=== PATIENT | male | born 1990 | race Hispanic/Latino ===

== ENCOUNTER 2018-10-09 11:35 | Emergency (ER) | payer OTHER | END 2018-10-09 11:56 | disposition home or self-care (01) | LOC: EDH 11:35 | DX: H00.011 Hordeolum externum right upper eyelid (principal); Z90.49 Acquired absence of other specified parts of digestive tract; Z98.890 Other specified postprocedural states | CPT/HCPCS: 99281 ==

== ENCOUNTER 2023-11-25 17:28 | Emergency (ER) | payer BC ==
[~2023-11-25] VITALS: Ht 175.3 cm; Wt 103.4 kg
[2023-11-25 18:09] LABS: BASOPHILS # (AUTO) 0.02 K/uL (0.00-0.20); BASOPHILS % (AUTO) 0.2 % (0.0-5.0); EOSINOPHILS # (AUTO) 0.09 K/uL (0.00-0.70); EOSINOPHILS % (AUTO) 1.1 % (0.0-8.0); HEMATOCRIT 43.4 % (42-54); IMMATURE GRANULOCYTE ABSOLUTE 0.03 K/uL (0-1); LYMPHOCYTES # (AUTO) 2.7 K/uL (1.0-4.8); LYMPHOCYTES % (AUTO) 31.9 % (21.0-51.0); MEAN CORPUSCULAR HEMOGLOBIN 29.3 pg (27.0-33.0); MEAN CORPUSCULAR HGB CONC 36.2 g/dL (32.0-36.0); MONOCYTES # (AUTO) 0.6 K/uL (0.1-1.0); MONOCYTES % (AUTO) 6.8 % (3.0-13.0); NEUTROPHILS # (AUTO) 5.1 K/uL (1.8-7.7); NEUTROPHILS % (AUTO) 59.6 % (40.0-77.0); PLATELET COUNT (AUTO) 267 K/uL (130-400); RED BLOOD CELL COUNT(AUTO) 5.36 MIL/uL (4.50-6.20); RED CELL DISTRIBUTION WIDTH 12.4 % (11.0-15.5); WHITE BLOOD COUNT (AUTO) 8.5 K/uL (4.8-10.8)
[2023-11-25] MEDS: 0.9%NACL 1000ML 1,000 ML IV ONE (18:09)
[2023-11-25] MEDS: KETOROLAC 30MG VIAL (30MG/ML) IVP ONE (18:09)
[2023-11-25 18:21] LABS: CREATININE 1.1 mg/dL (0.5-1.3); POTASSIUM 3.9 mmol/L (3.5-5.1)
[2023-11-25 18:25] LABS: BILIRUBIN,TOTAL 0.7 mg/dL (0.2-1.0); TOTAL PROTEIN, SERUM 7.9 g/dL (6.0-8.3)
[2023-11-25] MEDS ORDERED: IOHEXOL 350 MG/ML 100ML INFUS..BTL IV ONE (18:28)
[2023-11-25 19:09] LABS: APPEARANCE,URINE CLEAR (CLEAR); BILIRUBIN,URINE NEGATIVE (NEGATIVE); COLOR,URINE COLORLESS (YELLOW); GLUCOSE, URINE (UA) NEGATIVE (NEGATIVE); KETONES,URINE NEGATIVE (NEGATIVE); LEUKOCYTE ESTERASE ,URINE NEGATIVE Leu/uL (NEGATIVE); NITRATE,URINE NEGATIVE (NEGATIVE); OCCULT BLOOD,URINE NEGATIVE (NEGATIVE); PH,URINE 6.5 (5.0-8.0); PROTEIN,URINE NEGATIVE (NEGATIVE); UROBILINOGEN,URINE 0.2 mg/dL (0.2-1.0)
[2023-11-25 19:11] LABS: ADD UA MICROSCOPIC NO
[2023-11-25 19:40] VITALS: BP 127/88; PULSE 71; RESP 18; O2SAT 99
== END 2023-11-25 19:41 | disposition home or self-care (01) ==
LOC: EDH 17:28
DX: S39.011A Strain of muscle, fascia and tendon of abdomen, initial encounter (principal); Z90.49 Acquired absence of other specified parts of digestive tract; Z98.890 Other specified postprocedural states; X58.XXXA Exposure to other specified factors, initial encounter; Y93.89 Activity, other specified; Y92.89 Other specified places as the place of occurrence of the external cause; Y99.8 Other external cause status
CPT/HCPCS: 99284; 74177; 96374; 96361; 80053; 83690; 85025; 81003; 36415; J7030; J1885; Q9967

== ENCOUNTER 2024-07-10 12:38 | Emergency (ER) | payer BC ==
[~2024-07-10] VITALS: Ht 175.3 cm; Wt 102.1 kg
[2024-07-10] MEDS: HYDROcodone/APAP 5/325 1 TAB TABLET PO ONE (13:30)
[2024-07-10] MEDS: LIDOCAINE HCL 1% 20 ML VIAL INJ ONE (13:30)
[2024-07-10 13:49] LABS: BASOPHILS # (AUTO) 0.02 K/uL (0.00-0.20); BASOPHILS % (AUTO) 0.2 % (0.0-5.0); EOSINOPHILS # (AUTO) 0.14 K/uL (0.00-0.70); EOSINOPHILS % (AUTO) 1.7 % (0.0-8.0); IMMATURE GRANULOCYTE ABSOLUTE 0.03 K/uL (0-1); LYMPHOCYTES # (AUTO) 2.1 K/uL (1.0-4.8); MEAN CORPUSCULAR HEMOGLOBIN 28.8 pg (27.0-33.0); MEAN CORPUSCULAR HGB CONC 34.8 g/dL (32.0-36.0); MEAN CORPUSCULAR VOLUME 82.9 fL (79-99); MONOCYTES # (AUTO) 0.7 K/uL (0.1-1.0); MONOCYTES % (AUTO) 7.9 % (3.0-13.0); NEUTROPHILS # (AUTO) 5.4 K/uL (1.8-7.7); NEUTROPHILS % (AUTO) 64.8 % (40.0-77.0); PLATELET COUNT (AUTO) 293 K/uL (130-400); RED BLOOD CELL COUNT(AUTO) 5.55 MIL/uL (4.50-6.20); RED CELL DISTRIBUTION WIDTH 12.6 % (11.0-15.5); WHITE BLOOD COUNT (AUTO) 8.3 K/uL (4.8-10.8)
[2024-07-10 13:50] LABS: CREATININE 1.1 mg/dL (0.5-1.3); POTASSIUM 4.1 mmol/L (3.5-5.1)
--- NOTE | 2024-07-10 14:02 | HMCIMG ---
US SOFT TISSUE LOWER BACK HISTORY: Abscess TECHNIQUE: US SOFT TISSUE LOWER BACK. FINDINGS/IMPRESSION: Ultrasound evaluation of the lower back was performed. Hypoechoic mass is seen in the area of interest measuring 5.6 x 4.4 x 2.5 cm.
--- NOTE | 2024-07-10 16:35 | ERN ---
ED Note History of Present Illness Stated Complaint: CYST ON BACK, BACK PAIN Chief Complaint: Abscess Time Seen by MD: 13:04 Time Seen by Midlevel: 13:04 Dictation: The patient is a 33-year-old male with a history of appendectomy who presents to the emergency department with complaints of low back abscess. Patient reports he has been having problems with this for a month had a drained but two months ago it started to grow again. Reports that a week ago pain got worse and started getting erythema. Patient denies any fevers. Allergies: Coded Allergies: No Known Allergies (Unverified Allergy, Unknown, 10/09/18) Past Medical History Past Medical History: No Pertinent History Surgical History: Appendectomy, Other Surgical History Other: LEFT FEMUR REPAIR. RN Note Reviewed/Agreed w/PFSH: Yes Review of System Dictation Constitutional: Negative for fever,chills, and weight loss Eyes: Negative for injury, pain,redness, and discharge ENT: Negative for injury,pain or swelling Cardiovascular: Negative for chest pain, palpitations, and edema Respiratory: Negative for shortness of breath, cough, and wheezing, Abdomen/GI: Negative for abdominal pain, nausea, vomiting, diarrhea, and constipation Back: Negative for injury and pain : Negative for injury, bleeding and discharge MS/Extremity: Negative for injury and deformity Skin: Negative for rash, and discoloration, abscess noted to left lower back, Neuro: Negative for headache, weakness, numbness, tingling, and seizure Psych: Negative for suicide ideation, homicidal ideation, and hallucinations Initial Vital Sign VS Vital Signs Date Time Temp Pulse Resp B/P (MAP) Pulse Ox O2 Delivery O2 Flow Rate FiO2 07/10/24 13:06 98.1 79 16 127/80 97 Room Air 07/10/24 16:48 0 21 Physical Exam Dictation Vital Signs reviewed General Appearance: Alert, oriented x 3, no acute distress, well developed, nourished. Head and Face: non-traumatic. Eyes: PERRL, pink conjunctivas, eyelid no trauma, anterior chamber with arcus senilis. Ears: Pinnas intact and no signs of trauma or erythema ear canals clear and no discharge TM no erythema Nose: No discharge, no bleeding. Oropharynx: Mouth normal, tongue pink. pharynx clear,no erythema, tonsils no exudates, no abscesses noted, mucous membrane moist Neck: Supple, non-tender, no thyromegaly, no masses, no JVD, no bruits Breast:Deferred Chest:No tenderness, no crepitus, no paradoxical movement, no retractions Lungs:Clear, well-ventilated, symmetric, no rales, no wheezing, no rhonchi, no stridor, good breath sounds bilaterally Heart: Regular rate, regular rhythm, no murmur, no gallops Vascular: no peripheral edema, Abdomen: Soft, positive bowel sounds, nondistended, no guarding, nontender, no rebound, no masses no hepatomegaly, no splenomegaly, no Carpenter's sign, no hernias. Rectal: Deferred Genital: Deferred Neurological: Normal speech, motor function intact, sensory function intact Musculoskeletal: Neck nontender, full range of motion, back nontender, full range of motion, Extremities: nontender, full range of motion Skin: Color pink, dry, no turgor, no rash, no lacerations, no abrasions, no contusions. 5 cm cyst noted to left lower back, slight erythema, tender to palpation, no open wounds Lymphatic: Deferred Results (Laboratory/Radiology) Laboratory/Radiology Laboratory Tests Test 07/10/24 13:37 White Blood Count 8.3 K/uL (4.8-10.8) Red Blood Count 5.55 MIL/uL (4.50-6.20) Hemoglobin 16.0 g/dL (14.0-18.0) Hematocrit 46.0 % (42-54) Mean Corpuscular Volume 82.9 fL (79-99) Mean Corpuscular Hemoglobin 28.8 pg (27.0-33.0) Mean Corpuscular Hemoglobin Concent 34.8 g/dL (32.0-36.0) Red Cell Distribution Width 12.6 % (11.0-15.5) Platelet Count 293 K/uL (130-400) Mean Platelet Volume 11.0 fL (7.5-10.5) H Immature Granulocyte % (Auto) 0.4 % (0-1) Neutrophils (%) (Auto) 64.8 % (40.0-77.0) Lymphocytes (%) (Auto) 25.0 % (21.0-51.0) Monocytes (%) (Auto) 7.9 % (3.0-13.0) Eosinophils (%) (Auto) 1.7 % (0.0-8.0) Basophils (%) (Auto) 0.2 % (0.0-5.0) Neutrophils # (Auto) 5.4 K/uL (1.8-7.7) Lymphocytes # (Auto) 2.1 K/uL (1.0-4.8) Monocytes # (Auto) 0.7 K/uL (0.1-1.0) Eosinophils # (Auto) 0.14 K/uL (0.00-0.70) Basophils # (Auto) 0.02 K/uL (0.00-0.20) Absolute Immature Granulocyte (auto 0.03 K/uL (0-1) Nucleated Red Blood Cells 0.0 % (0.0-0.19) Sodium Level 140 mmol/L (136-145) Potassium Level 4.1 mmol/L (3.5-5.1) Chloride Level 104 mmol/L (101-111) Carbon Dioxide Level 34 mmol/L (21-32) H Blood Urea Nitrogen 13 mg/dL (7-18) Creatinine 1.1 mg/dL (0.5-1.3) Glomerular Filtration Rate Calc 90 mL/min (>90) Random Glucose 95 mg/dL (70-105) Total Calcium 9.1 mg/dL (8.5-10.1) REASON: Abscess ORDERING PHYSICIAN: BRENNEN ORTIZ PROCEDURE: SOFT LBACK - US SOFT TISSUE LOWER BACK US SOFT TISSUE LOWER BACK HISTORY: Abscess TECHNIQUE: US SOFT TISSUE LOWER BACK. FINDINGS/IMPRESSION: Ultrasound evaluation of the lower back was performed. Hypoechoic mass is seen in the area of interest measuring 5.6 x 4.4 x 2.5 cm. Labs Reviewed?: Yes ED Course ED Course Orders Procedure Category Date Status Time Cbc With Differential LAB 07/10/24 Complete 13:17 Basic Metabolic Panel LAB 07/10/24 Complete 13:17 Lidocaine Hcl 1% 20ml PHA 07/10/24 Complete Vial (Lidocaine Hc 13:30 Us Soft Tissue Lower US 07/10/24 Resulted Back 13:17 I&D Set Up Bedside CPOE 07/10/24 Transmitted (Er) 13:17 Hydrocodone/Apap PHA 07/10/24 Complete 5/325 ([place] 5/325mg) 13:30 Ceftriaxone 1g Vial PHA 3/9/25 Logged (Rocephine 1g Inj) 17:30 Aerobic Culture ALMA 07/10/24 Transmitted 17:26 Anaerobic Culture ALMA 07/10/24 Transmitted 17:26 Current Medications Medications (Trade) Dose Ordered Sig/Jose Route PRN Reason Start Time Stop Time Status Last Admin Dose Admin Acetaminophen/ Hydrocodone Bitart (NORco 5/325MG) 1 tab ONCE ONCE PO 07/10/24 13:30 07/10/24 13:31 DC 07/10/24 13:30 Ceftriaxone Sodium (ROCEphine 1G INJ) 1 gm ONCE ONCE IM 07/10/24 17:30 07/10/24 17:31 UNV Lidocaine HCl (Lidocaine HCl 1% 20ml Vial) 10 ml ONCE ONCE INJ 07/10/24 13:30 07/10/24 13:31 DC 07/10/24 13:30 Vital Signs Date Time Temp Pulse Resp B/P (MAP) Pulse Ox O2 Delivery O2 Flow Rate FiO2 07/10/24 17:28 98.1 81 20 127/60 99 Room Air* 0 21 07/10/24 16:48 98.8 84 20 128/69 99 Room Air* 0 21 07/10/24 13:06 98.1 79 16 127/80 97 Room Air Medical Decision Making MDM The patient is a 33-year-old male with a history of appendectomy who presents to the emergency department with complaints of low back abscess. Patient reports he has been having problems with this for a month had a drained but two months ago it started to grow again. Reports that a week ago pain got worse and started getting erythema. Patient denies any fevers. CBC showed no leukocytosis, no anemia, chemistry showed no electrolyte imbalance, ultrasound revealed hypopneic masses seen in the area of interest measuring 5.6 and 4.4 x 2.5 Differential diagnosis: Abscess, cellulitis, sepsis, sebaceous cyst Need for hospitalization: Patient does not meet criteria for hospitalization. There are no social concerns with this patient. Procedure Site: Left lower back Blade Size: 11 I & D Procedure: no betadine prep Progress Verbal consent for the procedure was obtained. A timeout protocol was performed prior to initiating the procedure. The area was prepared and draped in the usual, sterile manner. The site was anesthetized with 1% lidocaine without epinephrine. A linear incision along the local skin lines was made and the purulent material expressed. The abscess was explored thoroughly and sequestered pockets were opened. Bleeding was minimal. The patient tolerated the procedure well without complications. Standard post- procedure care is explained and return precautions are given. DX & DISP Disposition: Discharge Departure Impression: Primary Impression: Infected sebaceous cyst Condition: Stable Scripts Sulfamethoxazole/Trimethoprim (Bactrim Ds Tablet) 800 Mg-160 Mg Tablet 1 TAB PO BID for 7 Days, #14 TAB 0 Refills Prov: BRENNEN ORTIZ 07/10/24 Additional Instructions: Please follow up with your primary doctor. Take medications as prescribed. If symptoms worsen please return to ER. FOLLOW-UP WITH PRIMARY CARE PROVIDER IN 1 TO 2 DAYS. TAKE MEDICATIONS DIRECTED HERE IN THE EMERGENCY ROOM. OKAY TO CONTINUE HOME MEDICATIONS UNLESS OTHERWISE DISCUSSED DURING YOUR VISIT IN THE EMERGENCY ROOM TODAY. RETURN TO YOUR NEAREST EMERGENCY ROOM IF SYMPTOMS WORSEN OR IF THERE IS NO IMPROVEMENT. CALL 911 IF YOU NEED IMMEDIATE ASSISTANCE. TAKE TYLENOL OR MOTRIN [id number] NEEDED AND IF NO CONTRAINDICATIONS ARE PRESENT. INCREASE ORAL HYDRATION. A WOUND CULTURE OR URINE CULTURE WAS ORDERED HERE IN THE EMERGENCY ROOM DEPARTMENT PLEASE FOLLOW-UP WITH PRIMARY CARE PROVIDER AND ADVISE THEM TO GET REPEAT PORTS FROM OUR FACILITY. IF YOU HAD ANY KIANA WRAP/SPLINTS THAT WERE APPLIED HERE, PLEASE DO NOT REMOVE THEM UNTIL YOU SEE YOUR PRIMARY CARE OR SPECIALTY. Referrals: VANGIE MART MD (PCP) CRAIG LARA MD Time of Disposition: 17:32 I have reviewed the case, and I agree with, Diagnosis and Plan BRENNEN ORTIZ Jul 10, 2024 16:35
[2024-07-10 17:28] VITALS: BP 127/60; PULSE 81; RESP 20; TEMP 98.1; O2SAT 99
[2024-07-10] MEDS ORDERED: SULF1TAB42 PO (17:33)
[2024-07-10] MEDS: cefTRIAXone 1G VIAL IM ONE (17:34)
== END 2024-07-10 17:44 | disposition home or self-care (01) ==
LOC: EDH 12:38 → EEVIPCON 12:38 → EDH 17:44
DX: L72.3 Sebaceous cyst (principal); L08.9 Local infection of the skin and subcutaneous tissue, unspecified; Z90.49 Acquired absence of other specified parts of digestive tract
CPT/HCPCS: 99284; 10060; 76705; 80048; 85025; 87070; 87076; 36415; 96372; J0696

== ENCOUNTER 2024-09-17 20:21 | Emergency (ER) | payer BC ==
[~2024-09-17] VITALS: Ht 175.3 cm; Wt 97.5 kg
[~2024-09-17 20:21] MED LIST: SULF1TAB42 PO
--- NOTE | 2024-09-17 20:29 | NUR ---
UA CUP PROVIDED
--- NOTE | 2024-09-17 20:31 | NUR ---
UA COLLECTED AND SENT
--- NOTE | 2024-09-17 20:45 | ERN ---
ED Note History of Present Illness Stated Complaint: FACIAL NUMBNESS Chief Complaint: Other Problems Time Seen by MD: 20:25 Time Seen by Midlevel: 20:30 Dictation: Mr. Pringle is a 34-year-old gentleman with history of obesity who presented to the emergency department this evening for evaluation of facial numbness. He states that at approximately 1730 he developed a slight posterior/parietal right-sided headache as well as paresthesia to the left eyebrow/left cheek. He states he has been experiencing twitching of the left eye . He denies dysphasia, dysarthria, ataxic gait, altered mental status, vision changes or motor weakness. He denies recent illness, fever, chills, shortness of breath, cough, chest pain, palpitations, edema, abdominal pain, nausea, vomiting, diarrhea, dysuria, or dizziness. Allergies: Coded Allergies: No Known Allergies (Unverified Allergy, Unknown, 10/09/18) Home Meds Active Scripts Sulfamethoxazole/Trimethoprim (Bactrim Ds Tablet) 800 Mg-160 Mg Tablet, 1 TAB PO BID for 7 Days, #14 TAB 0 Refills Prov:BRENNEN ORTIZ CARD PLACER 07/10/24 Past Medical History Past Medical History: No Pertinent History, Other (obesity) Surgical History: Appendectomy, Other Surgical History Other: LEFT FEMUR REPAIR. PSYCH History: no pertinent psych hx Social History: Negative, Lives with family RN Note Reviewed/Agreed w/PFSH: Yes Review of System Dictation REVIEW OF SYSTEMS: CONSTITUTIONAL: Patient denies fevers, chills, sweats and weight changes. EYES: Reports twitching of the left eye. EARS, NOSE, AND THROAT: No difficulties with hearing. No symptoms of rhinitis or sore throat. CARDIOVASCULAR: Patient denies chest pains, palpitations, orthopnea and paroxysmal nocturnal dyspnea. RESPIRATORY: No dyspnea on exertion, no wheezing or cough. GI: No nausea, vomiting, diarrhea, constipation, abdominal pain, hematochezia or melena. : No urinary hesitancy or dribbling. No nocturia or urinary frequency. No abnormal urethral discharge. MUSCULOSKELETAL: No myalgias or arthralgias. NEUROLOGIC: No chronic headaches/migraines, no seizures. Patient denies focal weakness, problems with speech or swallowing, unsteady gait, dizziness, . Reports slight headache right parietal/posterior. Repots numbness at left eyebrow and left cheek. PSYCHIATRIC: Patient denies problems with mood disturbance. No problems with anxiety. ENDOCRINE: No excessive urination or excessive thirst. DERMATOLOGIC: Patient denies any rashes or skin changes. Initial Vital Sign VS Vital Signs Date Time Temp Pulse Resp B/P (MAP) Pulse Ox O2 Delivery O2 Flow Rate FiO2 09/17/24 20:22 98.4 74 16 129/86 98 Room Air 09/17/24 20:47 0 21 Physical Exam Dictation Vital signs: Reviewed. Afebrile Constitutional: No acute distress. Non-toxic appearing. Significant other at bedside Head/Face: Normocephalic, atraumatic. Eyes: Periorbital areas with no swelling, redness, or edema. Lids and lashes are normal. Conjunctival injection is absent. Sclera anicteric. Pupils equal, round, reactive to light. ENT: Pinnas intact and no signs of trauma or erythema. Ear canals clear and no discharge. TMs no erythema. No nasal discharge or bleeding noted. Oropharynx with no exudate, redness, swelling, masses, exudates, or evidence of obstruction. Uvula midline. Mucous membranes moist. Neck: Trachea midline, no masses palpated, and no cervical lymphadenopathy. No swelling. Supple, full range of motion. Chest/Axilla: No tenderness, no crepitus, no paradoxical movement, no retractions. Cardiovascular: Regular rate, regular rhythm, no murmur, no gallops. Symmetric pulses. No peripheral edema. BP 129/86. Respiratory: Respirations even and unlabored. Lung sounds clear; no wheezes, rales or rhonchi. Room air SpO2 98%. Gastrointestinal: Inspection is normal. No distention is appreciated. Bowel sounds are normal. No mass or organomegaly . There is no tenderness. No rebound. No rigidity. No voluntary or involuntary guarding. No Carpenter's sign. Neurological: Alert and oriented x3. No aphasia or dysarthria. No dysphasia. Gait normal; no ataxia vision grossly intact. No diplopia or visual field deficits reported. Pupils equal, round, reactive. EOMs intact. No nystagmus there was subjective decrease in sensation noted over left V1 distribution (forehead and periorbital area, V2 and V3 intact bilaterally. [place] and temporalis strength symmetrical. Symmetrical brow elevation, eye closure, smile, and puff cheeks. No facial droop. Speech is clear. No hoarseness. Shoulder shrug and head turn symmetrical. Tongue is midline; full range of motion. Motor strength five stress five in all extremities. No pronator drift. Normal light touch and pinprick sensation throughout accept for mild subjective decrease in left V1 distribution. Reflexes 2+ and symmetrical. Plantar reflex downgoing bilaterally. Tmihpa-[id number], vuwu-[id number] intact. No dysmetria. Gait is normal. NIHSS=1 (sensory) Musculoskeletal/Extremities: All extremities have full range of motion, no pain or tenderness on palpation. Symmetric pulses. Integumentary: Intact. Skin is normal color, warm and dry. Cap refill less than 2 seconds. Results (Laboratory/Radiology) Laboratory/Radiology Laboratory Tests Test 09/17/24 21:02 White Blood Count 9.1 K/uL (4.8-10.8) Red Blood Count 5.58 MIL/uL (4.50-6.20) Hemoglobin 16.0 g/dL (14.0-18.0) Hematocrit 46.0 % (42-54) Mean Corpuscular Volume 82.4 fL (79-99) Mean Corpuscular Hemoglobin 28.7 pg (27.0-33.0) Mean Corpuscular Hemoglobin Concent 34.8 g/dL (32.0-36.0) Red Cell Distribution Width 12.3 % (11.0-15.5) Platelet Count 247 K/uL (130-400) Mean Platelet Volume 10.6 fL (7.5-10.5) H Immature Granulocyte % (Auto) 0.3 % (0-1) Neutrophils (%) (Auto) 58.2 % (40.0-77.0) Lymphocytes (%) (Auto) 32.9 % (21.0-51.0) Monocytes (%) (Auto) 6.4 % (3.0-13.0) Eosinophils (%) (Auto) 1.9 % (0.0-8.0) Basophils (%) (Auto) 0.3 % (0.0-5.0) Neutrophils # (Auto) 5.3 K/uL (1.8-7.7) Lymphocytes # (Auto) 3.0 K/uL (1.0-4.8) Monocytes # (Auto) 0.6 K/uL (0.1-1.0) Eosinophils # (Auto) 0.17 K/uL (0.00-0.70) Basophils # (Auto) 0.03 K/uL (0.00-0.20) Absolute Immature Granulocyte (auto 0.03 K/uL (0-1) Nucleated Red Blood Cells 0.0 % (0.0-0.19) Sodium Level 142 mmol/L (136-145) Potassium Level 3.7 mmol/L (3.5-5.1) Chloride Level 106 mmol/L (101-111) Carbon Dioxide Level 25 mmol/L (21-32) Blood Urea Nitrogen 12 mg/dL (7-18) Creatinine 1.1 mg/dL (0.5-1.3) Glomerular Filtration Rate Calc 89 mL/min (>90) Random Glucose 131 mg/dL (70-105) H Total Calcium 8.5 mg/dL (8.5-10.1) Magnesium Level 2.20 mg/dL (1.80-2.40) Labs Reviewed?: Yes CT Scan Comment: PATIENT: FLAVIO PRINGLE MR#: [id number] : 1990 SEX: M AGE: 34 LOCATION: [facility] ORDER 43 STATUS: REG REPORT#: [id number] SERVICE 42 REASON: eye pain, facial numbness ORDERING PHYSICIAN: DIMAS CRUZ NP PROCEDURE: HEAD WO - CT HEAD/BRAIN W/O CONTRAST CT HEAD/BRAIN W/O CONTRAST HISTORY: Eye pain COMPARISON: 09/17/2024 TECHNIQUE: Multiple sequential axial images of the head were obtained from the base of the skull through vertex. Patient was not given contrast through intravenous route. FINDINGS: The ventricles and extraventricular CSF spaces are nondilated for patient's age. There is no midline shift, mass effect or herniation. No acute intracranial bleed is seen. Left maxillary sinus polyp is seen. IMPRESSION: 1. No acute intracranial bleed is seen. CT was performed with one or more following dose reduction techniques: automated exposure control, adjustment of the mA and kv according to patient's size, or use of a iterative reconstruction technique. DICTATED BY: DESTINI GARCÍA MD DATE: 09/17/242140 ELECTRONICALLY SIGNED BY: DESTINI GARCÍA MD DATE: 09/17/242144 ED Course ED Course Orders Procedure Category Date Status Time Cbc With Differential LAB 09/17/24 Complete 20:43 Basic Metabolic Panel LAB 09/17/24 Complete 20:43 Magnesium LAB 09/17/24 Complete 20:43 Ct Head/Brain W/O CT 09/17/24 Resulted Contrast 20:43 Vital Signs Date Time Temp Pulse Resp B/P (MAP) Pulse Ox O2 Delivery O2 Flow Rate FiO2 09/17/24 20:47 97.9 76 16 130/84 97 Room Air* 0 21 09/17/24 20:22 98.4 74 16 129/86 98 Room Air Uneventful ED course. Vital signs stable; normotensive and afebrile with room air SpO2 97-98%. NIHSS=1 for decreased sensation (minimal) to left cheek/eyebrow region. His headache he rated 1-2/10 and declined need for analgesic. Stat noncontrast CT scan of the brain unremarkable; negative for intracranial hemorrhage. Laboratory findings as noted below. No elevation of WBCs. No electrolyte derangement. Findings were discussed with patient and his significant other and all questions were answered. Medical Decision Making MDM MDM: Differential diagnosis: Benign eyelid myokymia, electrolyte derangement, trigeminal neuropathy (V1 branch). Early herpes zoster ophthalmicus (HZO), migraine headaches, structural lesion Rationale: Tests considered and ordered secondary to shared decision making include: Lab, CT Previous outside records reviewed: Old ER visits. Risk of complication and/or morbidity or mortality of patient management: None Medications-Per medication reconciliation Need for hospitalization: Patient does not meet criteria for hospitalization. Need for emergency major/minor surgery: No There are no social concerns with this patient. Prescription drug management Prescriptions will include symptomatic care Patient's prior external medical records from other ER visits were reviewed by me as indicated. Prior testing and results from previous visits were reviewed. Prior tests were taken into account with medical decision making and resource utilization, independent historian/historians were used to obtain complete medical history. I independently interpreted the test that were performed, results were reviewed by me and considered findings on radiology if ordered. Medical management and examination interpretation discussions were had by me with other qualified healthcare professionals as indicated for the patient's care. DX & DISP Disposition: Discharge Departure Impression: Primary Impression: Eyelid myokymia Additional Impression: Lt facial numbness Condition: Stable Additional Instructions: Eyelind myokyia is often caused by fatigue, stress, caffeine, or eyes drain in his usually homeless. Mild symptoms may improve gradually over days to weeks. Your laboratory findings and CT scan were normal which is reassuring. Rest and reduce stress. Limit caffeine and screen time. May use warm compress over the affected area of comfortable. Stay hydrated and get adequate weep. Use artificial tears if eyes feel dry or irritated. He should follow up with your primary care provider next week. If symptoms persist beyond 1-2 weeks, worsened, or interfere with daily activities may benefit from referral to neurologist. If a rash, worsening numbness, or new symptoms develop seek medical attention promptly with. Return to the emergency department as needed. You should seek immediate care if you develop facial drooping or weakness, vision changes or double vision, difficulty speaking, swallowing, or walking, intents or worsening headache, or a new rash new the eye or forehead which may indicate shingles. Referrals: VANGIE MART MD (PCP) Time of Disposition: 21:36 DIMAS CRUZ NP September 17, 2024 20:45
[2024-09-17 21:10] LABS: BASOPHILS # (AUTO) 0.03 K/uL (0.00-0.20); BASOPHILS % (AUTO) 0.3 % (0.0-5.0); EOSINOPHILS # (AUTO) 0.17 K/uL (0.00-0.70); EOSINOPHILS % (AUTO) 1.9 % (0.0-8.0); IMMATURE GRANULOCYTE ABSOLUTE 0.03 K/uL (0-1); LYMPHOCYTES % (AUTO) 32.9 % (21.0-51.0); MEAN CORPUSCULAR HEMOGLOBIN 28.7 pg (27.0-33.0); MEAN CORPUSCULAR HGB CONC 34.8 g/dL (32.0-36.0); MEAN CORPUSCULAR VOLUME 82.4 fL (79-99); MONOCYTES # (AUTO) 0.6 K/uL (0.1-1.0); MONOCYTES % (AUTO) 6.4 % (3.0-13.0); NEUTROPHILS # (AUTO) 5.3 K/uL (1.8-7.7); NEUTROPHILS % (AUTO) 58.2 % (40.0-77.0); PLATELET COUNT (AUTO) 247 K/uL (130-400); RED BLOOD CELL COUNT(AUTO) 5.58 MIL/uL (4.50-6.20); RED CELL DISTRIBUTION WIDTH 12.3 % (11.0-15.5); WHITE BLOOD COUNT (AUTO) 9.1 K/uL (4.8-10.8)
[2024-09-17 21:23] LABS: CREATININE 1.1 mg/dL (0.5-1.3); MAGNESIUM 2.2 mg/dL (1.80-2.40); POTASSIUM 3.7 mmol/L (3.5-5.1)
--- NOTE | 2024-09-17 21:45 | HMCIMG ---
CT HEAD/BRAIN W/O CONTRAST HISTORY: Eye pain COMPARISON: 09/17/2024 TECHNIQUE: Multiple sequential axial images of the head were obtained from the base of the skull through vertex. Patient was not given contrast through intravenous route. FINDINGS: The ventricles and extraventricular CSF spaces are nondilated for patient's age. There is no midline shift, mass effect or herniation. No acute intracranial bleed is seen. Left maxillary sinus polyp is seen. IMPRESSION: 1. No acute intracranial bleed is seen. CT was performed with one or more following dose reduction techniques: automated exposure control, adjustment of the mA and kv according to patient's size, or use of a iterative reconstruction technique.
[2024-09-17 22:35] VITALS: BP 122/67; PULSE 75; RESP 16; TEMP 98; O2SAT 99
== END 2024-09-17 22:38 | disposition home or self-care (01) ==
LOC: EDH 20:21
DX: G51.4 Facial myokymia (principal); R20.0 Anesthesia of skin; Z90.49 Acquired absence of other specified parts of digestive tract
CPT/HCPCS: 36415; 70450; 80048; 83735; 85025; 99284